=== PATIENT | female | born 1995 | race Caucasian/White ===

== ENCOUNTER → 2018-06-21 18:07 | Outpatient (CLI) | payer BC, SELFPAY ==
[2018-06-26 11:14] LABS: Neisseria gonorrhoeae, NAA Negative (Negative)
== END ==
PROVIDERS: Visit Provider Nurse Practitioner Obstetrics & Gynecology
DX: N89.8 Other specified noninflammatory disorders of vagina (principal)
CPT/HCPCS: 87491; 87591

== ENCOUNTER → 2019-08-22 17:14 | Outpatient (CLI) | payer BC, SELFPAY ==
[2019-08-25 12:22] LABS: Neisseria gonorrhoeae, NAA Negative (Negative)
== END ==
PROVIDERS: Visit Provider Nurse Practitioner Obstetrics & Gynecology
DX: R10.2 Pelvic and perineal pain (principal); R39.89 Other symptoms and signs involving the genitourinary system
CPT/HCPCS: 87491; 87591

== ENCOUNTER → 2019-08-31 13:45 | Outpatient (CLI) | payer BC, SELFPAY ==
--- NOTE | 2019-08-31 13:49 | US_ITS ---
PROCEDURE: US TRANSVAGINAL CLINICAL INDICATION: US T/V- Pelvic Pain COMPARISON: TVP US TRANSVAGINAL PREG from 11/11/2015 FINDINGS: UTERUS: 7.1 centimeters x 5.5 centimetersx 6.8 centimeters with a combined endometrial thickness of 13.1mm LEFT OVARY: 3.5 centimetersx5.4 centimetersx3.6 centimeters with a volume of 36.7ml. RIGHT OVARY: 3.2 centimetersx 2.5 centimetersx3.1 centimeters with a volume of 13.7 milliliters. Left ovary contains a 2.9 by 3.0 x 3 point 0 centimeter cyst likely functional. There is a small amount of free fluid IMPRESSION: Left ovarian cyst likely functional with small amount of free fluid in the pelvis. Endometrial thickening to 1.3 centimeters nonspecific. Dictated by: Dez Mercedes 08/31/2019 16:03 Electronically signed by Dez Mercedes in [facility] 08/31/2019 16:03
== END ==
PROVIDERS: PCP Nurse Practitioner Family; Visit Provider Nurse Practitioner Obstetrics & Gynecology
DX: R10.2 Pelvic and perineal pain (principal)
CPT/HCPCS: 76830

== ENCOUNTER 2021-08-15 15:18 | Emergency (ER) | payer BC, SELFPAY ==
[2021-08-15 15:20] VITALS: BP 146/89; PULSE 146; RESP 18; TEMP 36.9; O2SAT 100; BMI 32.3
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
[2021-08-15 16:19] LABS: Urine Pregnancy, HCG Qual. Negative (Negative)
[2021-08-15 17:00] VITALS: BP 156/78; PULSE 107; RESP 18; TEMP 36.9; O2SAT 100
== END 2021-08-15 17:00 | disposition home or self-care (01) ==
PROVIDERS: Emergency Provider Emergency Medicine
DX: S76.011A Strain of muscle, fascia and tendon of right hip, initial encounter (principal); V59.50XA Passenger in pick-up truck or van injured in collision with unspecified motor vehicles in traffic accident, initial encounter; Y92.488 Other paved roadways as the place of occurrence of the external cause; F17.210 Nicotine dependence, cigarettes, uncomplicated
CPT/HCPCS: 72100; 73502; 81025; 99282

== ENCOUNTER → 2021-09-17 13:27 | Outpatient (CLI) | payer BC, SELFPAY ==
--- NOTE | 2021-09-17 13:31 | US_ITS ---
FINAL REPORT CLINICAL HISTORY: .THYROID SWELLING-- FATIGY FINDINGS: THYROID ULTRASOUND Sonographic images of the thyroid was obtained. The right lobe of the thyroid measures4.4 x 1.6 x 1.6 cm. The left lobe of the thyroid measures 3.5 x 1.0 x 1.5 cm. The isthmus measures 3 mm. IMPRESSION: Unremarkable thyroid evaluation Reviewed, Interpreted and Dictated by Vishnu Samano III, MD Transcribed by Anna Kennedy Authenticated by Vishnu Samano III, MD on 09/17/2021 03:32:[address] [facility]
== END ==
PROVIDERS: PCP Nurse Practitioner Family; Visit Provider Nurse Practitioner Family
DX: E04.9 Nontoxic goiter, unspecified (principal)
CPT/HCPCS: 76536

== ENCOUNTER 2021-09-24 13:00 | Outpatient (RCR) | payer BC, SELFPAY | END 2021-10-21 09:06 | disposition home or self-care (01) | LOC: PT.CARL 13:00 | PROVIDERS: Visit Provider Nurse Practitioner Family | DX: M54.50 Low back pain, unspecified (principal) | CPT/HCPCS: 97010; 97014; 97110; 97140; 97163; G0283 ==

== ENCOUNTER → 2022-01-19 11:02 | Outpatient (CLI) | payer BC, SELFPAY | PROVIDERS: Visit Provider Nurse Practitioner Obstetrics & Gynecology | DX: N39.0 Urinary tract infection, site not specified (principal); Z01.419 Encounter for gynecological examination (general) (routine) without abnormal findings | CPT/HCPCS: 87086 ==

== ENCOUNTER 2022-03-25 16:00 | Outpatient (RCR) | payer BC, SELFPAY | END 2022-03-25 17:00 | disposition home or self-care (01) | LOC: PT 16:00 | PROVIDERS: Visit Provider Nurse Practitioner Family | DX: M25.551 Pain in right hip (principal); V89.2XXA Person injured in unspecified motor-vehicle accident, traffic, initial encounter | CPT/HCPCS: 97110; 97140; 97163 ==

== ENCOUNTER 2022-06-07 13:00 | Emergency (ER) | payer BC, SELFPAY ==
[2022-06-07 13:50] VITALS: BP 144/90; PULSE 64; RESP 20; TEMP 36.8; O2SAT 100; BMI 34.7
--- NOTE | 2022-06-07 14:06 | EXP.UTC ---
Discharge Plan Disposition Patient Disposition: Home, Self-Care Condition: Good Prescriptions Prescriptions: New amoxicillin [amoxicillin] 500 mg tablet 500 mg PO TID 10 Days Qty: 30 0RF benzonatate [benzonatate] 100 mg capsule 100 mg PO TIDP PRN (Reason: Cough) Qty: 30 0RF methylprednisolone 4 mg Tablets,Dose Pack 4 mg PO DIRECTED Qty: 21 0RF No Action buprenorphine-naloxone 8-2 mg tablet, sublingual SUBLINGUAL 7 Days Qty: 14 gabapentin 300 mg capsule PO 30 Days Qty: 60 nitrofurantoin monohyd/m-cryst [Macrobid] 100 mg capsule 100 mg PO BID 10 Days Qty: 20 0RF Rx Instructions: must administer with a meal/food polyethylene glycol 3350 [Miralax] 17 gram/dose powder 17 g PO BID Qty: 510 4RF fluconazole [Diflucan] 150 mg tablet 150 mg PO Q3D 0 Days Qty: 2 0RF Referrals Follow up/Referrals: Tigist Stephens [Primary Care Provider] - See instructions Activity Restrictions/Add. Instructions Additional Instructions/Restrictions: Drink plenty of fluids. Take tylenol or ibuprofen for pain or fever. Take the medications as directed. Follow up with your regular doctor. GO TO THE ER FOR ANY WORSENING SYMPTOMS Throw your tooth brush away and get a new one. Clinical Impressions Clinical Impression: Pharyngitis Stand Alone Forms Stand Alone Forms: Work/School Release Instructions Patient Instructions: Strep Throat, DI for Strep Throat Discharge ED Provider: Dani Chandra [facility] General Stated complaint: exposer to sickness Time Seen by Provider: 06/07/22 14:06 History of Present Illness Provider Complaint: She states that she has had a sore throat for the past 3 days. Related Data Home Medications Medication Instructions Recorded Confirmed buprenorphine 8 mg-naloxone 2 mg sublingual 7 days ##14 12/27/17 01/18/22 sublingual tablet gabapentin 300 mg capsule PO 30 days ##60 12/27/17 01/18/22 Previous Rx's Medication Instructions Recorded polyethylene glycol 3350 17 17 g PO BID #510 grams 01/12/22 gram/dose oral powder (Miralax) nitrofurantoin 100 mg PO BID 10 days #20 caps 01/18/22 monohydrate/macrocrystals 100 mg capsule (Macrobid) fluconazole 150 mg tablet 150 mg PO Q3D 2 doses #2 tabs 02/16/22 (Diflucan) amoxicillin 500 mg tablet 500 mg PO TID 10 days #30 tabs 06/07/22 benzonatate 100 mg capsule 100 mg PO TIDP PRN Cough #30 caps 06/07/22 methylprednisolone 4 mg tablets in 4 mg PO DIRECTED #21 tabs 06/07/22 a dose pack Allergies Allergy/AdvReac Type Severity Reaction Status Date / Time chlorpheniramine Allergy Unknown Verified 01/18/22 16:16 [From [facility] (PHENYLEPH-CHLORPHN)] dextromethorphan Allergy Unknown Verified 01/18/22 16:16 [From [facility] (PHENYLEPH-CHLORPHN)] erythromycin base Allergy Unknown Verified 01/18/22 16:16 [[facility] phenylephrine Allergy Unknown Verified 01/18/22 16:16 [From [facility] (PHENYLEPH-CHLORPHN)] [facility] 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 Anxiety Surgical History History of section History of tonsillectomy Social History Smoking Status: Current every day smoker alcohol intake: never substance use type: former substance user current occupational status: employed Travel in the last 8 weeks: None housing: house ROS Obtained: Yes All systems reviewed & no additional complaints except as documented Constitutional Constitutional: Reports chills and Reports fever(s) Eyes Eyes: Denies eye discharge ENT Ears, Nose, Mouth, and Throat: Reports as per HPI Cardiovascular Cardiovascular: Denies chest pain Respiratory Respiratory: Denies chest congestion and Reports cough Gastrointestinal Gastrointestingal: Reports nausea; 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
[2022-06-07 14:23] LABS: UTC Influenza A Antigen Negative (Negative); UTC Influenza B Antigen Negative (Negative)
[2022-06-07 14:23] LABS: UTC Strep Screen (Rapid) Negative (Negative)
[2022-06-07 14:43] VITALS: BP 144/90; PULSE 64; RESP 20; TEMP 36.8; O2SAT 100
== END 2022-06-07 14:46 | disposition home or self-care (01) ==
PROVIDERS: Emergency Provider Nurse Practitioner Family; PCP Nurse Practitioner Family
DX: J02.9 Acute pharyngitis, unspecified (principal); R50.9 Fever, unspecified; R11.0 Nausea; R05.9 Cough, unspecified; F17.200 Nicotine dependence, unspecified, uncomplicated; Z79.51 Long term (current) use of inhaled steroids; Z79.52 Long term (current) use of systemic steroids; Z79.899 Other long term (current) drug therapy; Z88.0 Allergy status to penicillin; Z88.1 Allergy status to other antibiotic agents; Z88.3 Allergy status to other anti-infective agents; Z88.8 Allergy status to other drugs, medicaments and biological substances
CPT/HCPCS: 87804; 87880; 99213; G0463

== ENCOUNTER 2022-07-14 18:52 | Emergency (ER) | payer BC, SELFPAY ==
[2022-07-14 18:53] VITALS: BP 125/62; PULSE 69; RESP 18; TEMP 36.7; O2SAT 100; BMI 34.7
[2022-07-14 20:42] LABS: Basophils # 0.1 K/mm3 (0-0.2); Basophils % 1.3 % (0.1-2.0); Eosinophils # 0.1 K/mm3 (0.0-0.4); Eosinophils % 1.2 % (0.1-12.0); Hematocrit 43.2 % (37.0-47.0); Hemoglobin 14.5 g/dL (12.2-16.2); Lymphocytes # 3.3 K/mm3 (0.7-4.5); Lymphocytes % 33.7 % (10-50); Mean Corpuscular HGB Conc 33.6 g/dL (31.8-35.4); Mean Corpuscular Hemoglobin 31.2 pg (27.0-31.2); Mean Platelet Volume 8.9 fl (7.4-10.4); Monocytes # 0.7 K/mm3 (0.1-1.0); Monocytes % 6.8 % (1.7-9.3); Neutrophils # 5.5 K/mm3 (1.8-7.8); Platelet Count 348 K/mm3 (142-424); Red Blood Count 4.65 M/mm3 (4.20-5.40); Red Cell Distribution Width 13.4 % (11.5-17.5); White Blood Count 9.7 K/mm3 (4.8-10.8)
[2022-07-14 20:46] LABS: Alanine Aminotransferase 29 U/L (12-78); Albumin Level 4.4 g/dl (3.5-5.0); Albumin/Globulin Ratio 1.4 (1.1-1.8); Alkaline Phosphatase 121 U/L (38-126); Anion Gap 10.7 mEq/L (5-15); Aspartate Amino Transferase 33 U/L (14-36); Blood Urea Nitrogen 14 mg/dl (7-17); Calcium 9.8 mg/dl (8.4-10.2); Carbon Dioxide 31 mmol/L (22.0-30.0); Chloride 101 mmol/L (98-107); Creatinine Clearance Estimated 146 mL/min (50-200); Estimated Glomerular Filt Rate 76 ml/min (>60); GFR (African American) 92 ML/MIN (>60); Globulin 3.1 g/dL (1.3-3.2); Glucose 78 mg/dl (74-100); Lactic Acid 0.8 mmol/L (0.7-2.1); Potassium 3.7 mmoL/L (3.5-5.1); Sodium 139 mmol/L (136-145); Total Protein,Serum 7.5 g/dl (6.3-8.2)
[2022-07-14 20:49] LABS: Bilirubin,Total < 0.1 mg/dl (0.2-1.3)
--- NOTE | 2022-07-14 21:07 | HMH.EDGENADL ---
Discharge Plan Disposition Patient Disposition: Home, Self-Care Chief Complaint: PAIN Prescriptions Prescriptions: No Action buprenorphine-naloxone 8-2 mg tablet, sublingual 1 tab SUBLINGUAL DAILY 7 Days Qty: 14 gabapentin 300 mg capsule PO 30 Days Qty: 60 Referrals Follow up/Referrals: Tigist Stephens [Primary Care Provider] - See instructions Clinical Impressions Clinical Impression: Erysipelas of left lower extremity, DVT (deep venous thrombosis) Instructions Patient Instructions: DI for Deep Vein Thrombosis Discharge ED Provider: Dick Roy General Adult HPI General Chief complaint: PAIN Stated complaint: pOSSIBLE BLOOD CLOT L LEG Time Seen by Provider: 07/14/22 20:20 Mode of Arrival: Ambulatory Source of Information: Patient and Relative Limitations: No Limitations Description of Symptoms (Recalled from ER Triage Doc. by RN): pt states she woke up 3 days ago with some thing that felt like a bruise on her left calf yesterday she states she could barley walk and today there is no pain unless you touch it and that it feels like its pulliong on the inside pt stated that the dr told her it could be a blood clot or infection to come get seen History of Present Illness HPI narrative: 2 day hx of pain to lt post calf w/o fever/rash or trauma - worse with wt bearing and foot extension - no bcp and positive tob but no hx of dvt - Onset (ago): day(s) Location: lower extremity Severity: moderate Consistency: constant Associated symptoms: denies other symptoms Related Data Home Medications Medication Instructions Recorded Confirmed buprenorphine 8 mg-naloxone 2 mg 1 tab sublingual DAILY Supplement 12/27/17 01/18/22 sublingual tablet 7 days ##14 gabapentin 300 mg capsule PO 30 days ##60 12/27/17 01/18/22 Allergies Allergy/AdvReac Type Severity Reaction Status Date / Time chlorpheniramine Allergy Unknown Verified 01/18/22 16:16 [From [facility] (PHENYLEPH-CHLORPHN)] dextromethorphan Allergy Unknown Verified 01/18/22 16:16 [From [facility] (PHENYLEPH-CHLORPHN)] erythromycin base Allergy Unknown Verified 01/18/22 16:16 [[facility] phenylephrine Allergy Unknown Verified 01/18/22 16:16 [From [facility] (PHENYLEPH-CHLORPHN)] [facility] Disclaimer: The information contained in this section may have been updated after the patient was seen, as this information can be updated by other users. 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 Anxiety Surgical History History of section History of tonsillectomy Social History Smoking Status: Current every day smoker alcohol intake: never substance use type: former substance user current occupational status: employed Travel in the last 8 weeks: None housing: house ROS Obtained: Yes All systems reviewed & no additional complaints except as documented Physical Exam General General appearance: alert Head Head exam: normocephalic Eye Eye exam: Present PERRL and EOMI ENT ENT exam: Present mucous membranes moist Neck Neck exam: Present trachea midline Respiratory Respiratory exam: Absent respiratory distress Cardiovascular Cardiovascular exam: Present regular rate Abdominal Exam Abdominal exam: Present soft Expanded Lower Extremity Exam Left: Lower leg exam: Present full ROM, tenderness, swelling and Homans' sign; Absent palpable cord Neurological Exam Neurological exam: Present alert, oriented X3 and CN II-XII intact Psychiatric Psychiatric exam: Present normal affect Skin Skin exam: Present other (reddness and tenderness lt post calf with no open area ) Medical Decision Making Medical Records Medical records reviewed: Yes I reviewed the patient's medical records. Az Inquiry Pt receiving controlled substance: No Vital Signs: 07/14
--- NOTE | 2022-07-14 21:40 | PC.NURSE ---
called lab for blood draw
[2022-07-14 22:06] LABS: HCG Qualitative, Serum Negative (Negative)
[2022-07-14 22:12] VITALS: BP 121/62; PULSE 72; RESP 18; TEMP 36.6; O2SAT 99
[2022-07-14 23:23] LABS: INR 0.89 (0.9-1.1); Prothrombin Time 9.7 seconds (10.1-12.5)
[2022-07-16 12:03] LABS: Homocyst(e)ine 33.4 umol/L (0.0-14.5)
[2022-07-17 22:11] LABS: Anti-Thrombin III Antigen 73 % (72-124); Antithrombin Activity 105 % (75-135); Factor VIII Activity 219 % (56-140); Protein C Functional 143 % (73-180); Protein S, Free 111 % (61-136); Protein S, Total 80 % (60-150); Protein S-Functional 72 % (63-140)
[2022-07-22 05:24] LABS: Protein C Antigen 107 % (60-150)
== END 2022-07-14 22:20 | disposition home or self-care (01) ==
PROVIDERS: Emergency Provider Emergency Medicine; PCP Nurse Practitioner Family
DX: I82.402 Acute embolism and thrombosis of unspecified deep veins of left lower extremity; A46 Erysipelas; Z16.39 Resistance to other specified antimicrobial drug; Z16.11 Resistance to penicillins
CPT/HCPCS: 80053; 81241; 83090; 83605; 84703; 85025; 85240; 85300; 85301; 85302; 85305; 85306; 85610; 86148; 87040; 87077; 87186; 96365; 96372; 96375; 99284; J0696

== ENCOUNTER → 2022-07-15 09:20 | Outpatient (CLI) | payer BC, SELFPAY ==
--- NOTE | 2022-07-15 | CA_ITS ---
FINAL REPORT TECHNIQUE: Color Doppler, duplex Doppler and compression sonography of the left lower extremity deep venous systems was performed. 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 The veins are patent and compressible. There is a superficial venous thrombus in the mid calf to ankle. IMPRESSION: No evidence of deep venous thrombosis left lower extremity. Superficial venous thrombus in the mid calf to ankle. Reviewed, Interpreted and Dictated by Vishnu Samano III, MD Transcribed by Anna Kennedy Authenticated and [facility]
== END ==
PROVIDERS: PCP Nurse Practitioner Family; Visit Provider Emergency Medicine
DX: M79.662 Pain in left lower leg (principal); R29.898 Other symptoms and signs involving the musculoskeletal system
CPT/HCPCS: 93971

== ENCOUNTER 2023-09-22 16:00 | Outpatient (CLI) | payer OTHER, SELFPAY ==
--- NOTE | 2023-09-22 16:01 | US_ITS ---
PROCEDURE INFORMATION: Exam: US Left Breast, Complete Exam date and time: 09/22/2023 4:08 PM Age: 28 years old Clinical indication: Breast pain; Left TECHNIQUE: Imaging protocol: Complete ultrasound of all four quadrants of the left breast and the retroareolar regions, including ultrasound of the axilla when performed. COMPARISON: No relevant prior studies available. FINDINGS: Breast: Sonographic images of the left breast including the retroareolar region, all 4 quadrants and the axilla do not demonstrate any solid masses. Minimal subcentimeter cystic change in the left lower outer quadrant. No architectural distortion or acoustical shadowing. No skin thickening or axillary adenopathy. IMPRESSION: No sonographic evidence of malignancy. Annual mammographic screening is recommended unless otherwise clinically indicated. ASSESSMENT: BI-RADS Category 2: Benign
== END 2023-09-22 23:59 ==
LOC: RAD 16:01
PROVIDERS: PCP Nurse Practitioner Family; Visit Provider Nurse Practitioner Obstetrics & Gynecology
DX: N64.4 Mastodynia (principal)
CPT/HCPCS: 76641

== ENCOUNTER 2023-10-16 16:35 | Emergency (ER) | payer OTHER, SELFPAY ==
[2023-10-16 17:05] VITALS: BP 116/69; PULSE 56; RESP 18; TEMP 36.7; O2SAT 98; BMI 35.6
--- NOTE | 2023-10-16 17:19 | EXP.UTC ---
Discharge Plan Disposition Patient Disposition: Home, Self-Care Condition: Good Prescriptions Prescriptions: New amoxicillin 500 mg tablet 500 mg PO TID 10 Days Qty: 30 0RF methylprednisolone 4 mg Tablets,Dose Pack 4 mg PO DIRECTED 6 Days Qty: 21 0RF Rx Instructions: Take 1 pack as directed for 6 days No Action buprenorphine-naloxone 8-2 mg tablet, sublingual 1 tab SUBLINGUAL DAILY 7 Days Qty: 14 gabapentin 100 mg capsule 100 mg PO TID Patient Comments: TAKE THREE CAPSULES 1 TIME EACH DAY Mirena 21 mcg/24 hours (8 yrs) 52 mg intrauterine device 1 device intrauterine ONCE Referrals Follow up/Referrals: Tigist Stephens [Primary Care Provider] - See instructions Activity Restrictions/Add. Instructions Additional Instructions/Restrictions: Drink plenty of fluids. Take tylenol or ibuprofen for pain or fever. Take the medications as directed. Follow up with your regular doctor. GO TO THE ER FOR ANY WORSENING SYMPTOMS Clinical Impressions Clinical Impression: Influenza B, Pharyngitis Stand Alone Forms Stand Alone Forms: Work/School Release Instructions Patient Instructions: Influenza, DI for Pharyngitis/Tonsillopharyngitis -- Adult, DI for Influenza -- Adult Discharge ED Provider: Dani Chandra [facility] HPI General Stated complaint: exposed to flu-sore throat, fever, cough Time Seen by Provider: 10/16/23 17:19 History of Present Illness Provider Complaint: She states that for the past 5 days she has had body aches, chills, malaise, cough, and fever. Related Data Home Medications Medication Instructions Recorded Confirmed buprenorphine 8 mg-naloxone 2 mg 1 tab sublingual DAILY Supplement 12/27/17 10/16/23 sublingual tablet 7 days ##14 gabapentin 100 mg capsule 100 mg PO TID 09/15/23 10/16/23 levonorgestrel 21 mcg/24 hours (8 1 device intrauterine ONCE 09/27/23 10/16/23 yrs) 52 mg intrauterine device (Mirena) Previous Rx's Medication Instructions Recorded amoxicillin 500 mg tablet 500 mg PO TID 10 days #30 tabs 10/16/23 methylprednisolone 4 mg tablets in 4 mg PO DIRECTED 6 days #21 tabs 10/16/23 a dose pack Allergies Allergy/AdvReac Type Severity Reaction Status Date / Time chlorpheniramine Allergy Unknown Verified 10/16/23 17:38 [From [facility] (PHENYLEPH-CHLORPHN)] dextromethorphan Allergy Unknown Verified 10/16/23 17:38 [From [facility] (PHENYLEPH-CHLORPHN)] erythromycin base Allergy Unknown Verified 10/16/23 17:38 [[facility] phenylephrine Allergy Unknown Verified 10/16/23 17:38 [From [facility] (PHENYLEPH-CHLORPHN)] [facility] Disclaimer: The information contained in this section may have been updated after the patient was seen, as this information can be updated by other users. 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 Anxiety Surgical History History of section History of tonsillectomy Social History Smoking Status: Current every day smoker alcohol intake: never substance use type: former substance user current occupational status: employed Travel in the last 8 weeks: None housing: house ROS Obtained: Yes All systems reviewed & no additional complaints except as documented Constitutional Constitutional: Reports chills and Reports fever(s) Eyes Eyes: Denies eye discharge ENT Ears, Nose, Mouth, and Throat: Reports as per HPI Cardiovascular Cardiovascular: Denies chest pain Respiratory Respiratory: Denies chest congestion and Reports cough Gastrointestinal Gastrointestingal: Reports nausea; Denies abdominal pain, constipation, cramping, diarrhea or vomiting Musculoskeletal Musculoskeletal: Denies arthralgias Integumentary/Breasts Skin/Breast: Denies rash Neurologic Neurologic: Denies paresthesias Physical Exam General General appearance: alert and in no apparent distress Head Head exam: atraumatic, normocephalic and normal inspection Eye Eye exam: Present normal appearance, PERRL and EOMI ENT ENT exam: Present mucous membranes moist and normal external ear exam Expanded ENT Exam TM/Canal exam: Bilateral TM: erythema and bulging Nose exam: Absent sinus tenderness Mouth exam: Present normal external inspection; Absent drooling Teeth exam: Present normal inspection Throat exam: Present tonsillar erythema, tonsillomegaly and tonsillar exudate Neck Neck exam: Present normal inspection, full ROM and trachea midline; Absent tenderness, meningismus or lymphadenopathy Chest Chest inspection: Present normal inspection and symmetric chest wall rise; Absent tenderness Respiratory Respiratory exam: Present normal lung sounds bilaterally; Absent respiratory distress, wheezes, stridor or accessory muscle use Cardiovascular Cardiovascular exam: Present regular rate and normal rhythm; Absent systolic murmur or diastolic murmur Abdominal Exam Abdominal exam: Present soft and normal bowel sounds; Absent distention, tenderness, guarding, rebound or rigidity Extremities Exam Extremities exam: Present normal inspection and normal capillary refill; Absent calf tenderness Back Exam Back exam: Present normal inspection and full ROM; Absent tenderness, CVA tenderness (R) or CVA tenderness (L) Neurological Exam Neurological exam: Present alert, oriented X3 and CN II-XII intact Psychiatric Psychiatric exam: Present normal affect and normal mood Skin Skin exam: Present warm, dry, intact and normal color Medical Decision Making Medical Records Medical records reviewed: No I reviewed the patient's medical records. Az Inquiry Pt receiving controlled substance: No Lab Data Lab results reviewed: Yes I reviewed the patient's lab results.
[2023-10-16 17:47] LABS: UTC Influenza A Antigen Positive (Negative); UTC Influenza B Antigen Negative (Negative); UTC Strep Screen (Rapid) Negative (Negative)
[2023-10-16 18:26] VITALS: BP 116/69; PULSE 56; RESP 18; TEMP 36.7; O2SAT 98
== END 2023-10-16 18:26 | disposition home or self-care (01) ==
PROVIDERS: Emergency Provider Nurse Practitioner Family; PCP Nurse Practitioner Family
DX: J10.1 Influenza due to other identified influenza virus with other respiratory manifestations (principal); R07.0 Pain in throat; R05.9 Cough, unspecified; R50.9 Fever, unspecified; R53.81 Other malaise; F41.9 Anxiety disorder, unspecified; F17.200 Nicotine dependence, unspecified, uncomplicated
CPT/HCPCS: 87804; 87880; 99212; 99214; G0463

== ENCOUNTER 2024-03-24 16:58 | Emergency (ER) | payer OTHER, SELFPAY ==
[2024-03-24 17:30] VITALS: BP 127/69; PULSE 82; RESP 20; TEMP 36.8; O2SAT 97; BMI 15.9
--- NOTE | 2024-03-24 17:46 | EXP.UTC ---
Discharge Plan Disposition Patient Disposition: Home, Self-Care Condition: Good Prescriptions Prescriptions: New amoxicillin 500 mg tablet 500 mg PO BID 10 Days Qty: 20 0RF No Action buprenorphine-naloxone 8-2 mg tablet, sublingual 1 tab SUBLINGUAL DAILY 7 Days Qty: 14 gabapentin 100 mg capsule 100 mg PO TID Patient Comments: TAKE THREE CAPSULES 1 TIME EACH DAY Mirena 21 mcg/24 hours (8 yrs) 52 mg intrauterine device 1 device intrauterine ONCE amoxicillin 500 mg tablet 500 mg PO TID 10 Days Qty: 30 0RF methylprednisolone 4 mg Tablets,Dose Pack 4 mg PO DIRECTED 6 Days Qty: 21 0RF Rx Instructions: Take 1 pack as directed for 6 days Referrals Follow up/Referrals: Tigist Stephens [Primary Care Provider] - See instructions Activity Restrictions/Add. Instructions Additional Instructions/Restrictions: Start antibiotics today be sure to take it as ordered with the full length of time although you should start feeling better in 24-48 hours. Change toothbrush and toothpaste 24-48 hours after starting antibiotics Tylenol or Motrin as needed for fever or pain Encourage fluids, water, Gatorade, Powerade, try cold fluids, popsicles, ice cream will make it feel better You are contagious for 24 hours. Avoid kissing anyone, no eating or drinking after anyone. You are contagious. Follow-up the ER for new or worsening symptoms or no noticeable improvement over the next 24-48 hours. Follow-up with PCP this week. Clinical Impressions Clinical Impression: Strep sore throat Instructions Patient Instructions: DI for Strep Throat Print Language Print Language: Sami Discharge ED Provider: Saji ([facility])Danya [facility] [place] HPI General Stated complaint: Sore throat,Cough,BONILLA,body aches Mode of Arrival: Ambulatory Source of Information: Patient Limitations: No Limitations Time Seen by Provider: 03/24/24 17:47 Description of Symptoms (Recalled from Triage Doc. by RN): PATIENT C/O SORE THROAT, HEADACHE, BODY ACHES, AND COUGH HEENT Symptoms (Recalled from RN notes): Yes Resp Symptoms (Recalled from RN notes): Yes Skin Symptoms (Recalled from RN notes): No MS Symptoms (Recalled from RN notes): No Functional Status (Recalled from RN notes): WNL History of Present Illness Provider Complaint: 29 yr old female presents for c/o Sore throat, Cough, BONILLA, body aches. pt states feels like her normal strep Related Data Home Medications ?Medication ?Instructions ?Recorded ?Confirmed buprenorphine 8 mg-naloxone 2 mg 1 tab sublingual DAILY Supplement 12/27/17 10/19/23 sublingual tablet 7 days ##14 gabapentin 100 mg capsule 100 mg PO TID 09/15/23 10/19/23 levonorgestrel 21 mcg/24 hr (up to 1 device intrauterine ONCE 09/27/23 10/19/23 8 years) 52 mg intrauterine device (Mirena) Previous Rx's ?Medication ?Instructions ?Recorded amoxicillin 500 mg tablet 500 mg PO TID 10 days #30 tabs 10/16/23 methylprednisolone 4 mg tablets in 4 mg PO DIRECTED 6 days #21 tabs 10/16/23 a dose pack amoxicillin 500 mg tablet 500 mg PO BID 10 days #20 tabs 03/24/24 Allergies Allergy/AdvReac Type Severity Reaction Status Date / Time chlorpheniramine Allergy Unknown Verified 10/19/23 10:07 [From [facility] DM (PHENYLEPH-CHLORPHN)] dextromethorphan Allergy Unknown Verified 10/19/23 10:07 [From [facility] (PHENYLEPH-CHLORPHN)] erythromycin base Allergy Unknown Verified 10/19/23 10:07 [From [facility] phenylephrine Allergy Unknown Verified 10/19/23 10:07 [From [facility] DM (PHENYLEPH-CHLORPHN)] Worker's Comp Is this a Worker's Comp case?: No [facility] Disclaimer: The information contained in this section may have been updated after the patient was seen, as this information can be updated by other users. 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) Smoking Status: Current every day smoker alcohol intake: never substance use type: former substance user current occupational status: employed Travel in the last 8 weeks: None housing: house ROS Obtained: Yes All systems reviewed & no additional complaints except as documented Constitutional Constitutional: Reports system reviewed and no additional complaints, except as documented, Reports as per HPI, Reports body ache, Reports chills and Reports headache(s) Eyes Eyes: Reports system reviewed and no additional complaints, except as documented ENT Ears, Nose, Mouth, and Throat: Reports system reviewed and no additional complaints, except as documented, Reports as per HPI, Reports headache(s) and Reports sore throat Cardiovascular Cardiovascular: Reports system reviewed and no additional complaints, except as documented Respiratory Respiratory: Reports system reviewed and no additional complaints, except as documented and Reports cough Gastrointestinal Gastrointestingal: Reports system reviewed and no additional complaints, except as documented Musculoskeletal Musculoskeletal: Reports system reviewed and no additional complaints, except as documented Integumentary/Breasts Skin/Breast: Reports system reviewed and no additional complaints, except as documented Neurologic Neurologic: Reports system reviewed and no additional complaints, except as documented and Reports headache(s) Endocrine Endocrine: Reports system reviewed and no additional complaints, except as documented Hematologic/Lymphatic Henatologic/Lymphatic: Reports system reviewed and no additional complaints, except as documented Allergic/Immunologic Allergic/Immunologic: Reports system reviewed and no additional complaints, except as documented Physical Exam General General appearance: alert and in no apparent distress Head Head exam: atraumatic Eye Eye exam: Present normal appearance and PERRL ENT ENT exam: Present mucous membranes moist and TM's normal bilaterally Expanded ENT Exam Comment: pharynx red and exudate present Respiratory Respiratory exam: Present normal lung sounds bilaterally Cardiovascular Cardiovascular exam: Present regular rate and normal rhythm Neurological Exam Neurological exam: Present alert and oriented X3 Skin Skin exam: Present warm and intact Medical Decision Making Medical Records Medical records reviewed: Yes I reviewed the patient's medical records. Az Inquiry Pt receiving controlled substance: No Az was queried for this patient: No Vital Signs: 03/24/24 17:30 Temperature 98.3 F Temperature Source Oral Pulse Rate [Left Brachial] 82 Respiratory Rate 20 Blood Pressure [Left Arm] 127/69 Blood Pressure Mean [Left Arm] 88 Blood Pressure Source [Left Arm] Automatic Cuff Blood Pressure Position [Left Arm] Sitting 02 Sat by Pulse Oximetry 97 Oxygen Delivery Method Room Air
[2024-03-24 18:12] LABS: UTC Strep Screen (Rapid) Negative (Negative)
[2024-03-24 18:17] VITALS: BP 127/69; PULSE 82; RESP 20; TEMP 36.8; O2SAT 97
== END 2024-03-24 18:22 | disposition home or self-care (01) ==
PROVIDERS: Emergency Provider Nurse Practitioner Family; PCP Nurse Practitioner Family
DX: J02.0 Streptococcal pharyngitis (principal); R05.9 Cough, unspecified; R51.9 Headache, unspecified; R07.0 Pain in throat
CPT/HCPCS: 87880; 99212; 99214; G0463

== ENCOUNTER 2024-07-13 16:40 | Emergency (ER) | payer OTHER, SELFPAY ==
[2024-07-13 17:41] VITALS: BP 110/72; PULSE 78; RESP 20; TEMP 37.1; O2SAT 100; BMI 32.5
[2024-07-13 18:00] LABS: UTC Strep Screen (Rapid) Negative (Negative)
--- NOTE | 2024-07-13 18:00 | EXP.UTC ---
Discharge Plan Disposition Patient Disposition: Home, Self-Care Condition: Good Prescriptions Prescriptions: New prednisone 10 mg tablet 10 mg PO BID 3 Days Qty: 6 0RF amoxicillin 500 mg tablet 500 mg PO TID 10 Days Qty: 30 0RF No Action buprenorphine-naloxone 8-2 mg tablet, sublingual 1 tab SUBLINGUAL DAILY 7 Days Qty: 14 gabapentin 100 mg capsule 100 mg PO TID Patient Comments: TAKE THREE CAPSULES 1 TIME EACH DAY Mirena 21 mcg/24 hours (8 yrs) 52 mg intrauterine device 1 device intrauterine ONCE Referrals Follow up/Referrals: Tigist Stephens [Primary Care Provider] - See instructions Activity Restrictions/Add. Instructions Additional Instructions/Restrictions: Drink plenty of fluids. Take tylenol or ibuprofen for pain or fever. Take the medications as directed. Follow up with your regular doctor. GO TO THE ER FOR ANY WORSENING SYMPTOMS Clinical Impressions Clinical Impression: Pharyngitis Instructions Patient Instructions: DI for Pharyngitis/Tonsillopharyngitis -- Child Print Language Print Language: Kazakh Discharge ED Provider: Dani Chandra [facility] General Stated complaint: st cough drainage Mode of Arrival: Ambulatory Source of Information: Patient Time Seen by Provider: 07/13/24 17:56 Description of Symptoms (Recalled from Triage Doc. by RN): SORE THROAT, COUGHING, MUCUS HEENT Symptoms (Recalled from RN notes): Yes Resp Symptoms (Recalled from RN notes): Yes Skin Symptoms (Recalled from RN notes): No MS Symptoms (Recalled from RN notes): No Functional Status (Recalled from RN notes): WNL Related Data Home Medications ?Medication ?Instructions ?Recorded ?Confirmed buprenorphine 8 mg-naloxone 2 mg 1 tab sublingual DAILY Supplement 12/27/17 07/13/24 sublingual tablet 7 days ##14 gabapentin 100 mg capsule 100 mg PO TID 09/15/23 07/13/24 levonorgestrel (Mirena) 1 device intrauterine ONCE 09/27/23 07/13/24 Previous Rx's ?Medication ?Instructions ?Recorded amoxicillin 500 mg tablet 500 mg PO TID 10 days #30 tabs 07/13/24 prednisone 10 mg tablet 10 mg PO BID 3 days #6 tabs 07/13/24 Allergies Allergy/AdvReac Type Severity Reaction Status Date / Time chlorpheniramine (From Allergy Unknown Verified 10/19/23 10:07 [facility] DM (PHENYLEPH-CHLORPHN)) dextromethorphan (From Allergy Unknown Verified 10/19/23 10:07 [facility] DM (PHENYLEPH-CHLORPHN)) erythromycin base (From Allergy Unknown Verified 10/19/23 10:07 [facility] phenylephrine (From [facility] Allergy Unknown Verified 10/19/23 10:07 DM (PHENYLEPH-CHLORPHN)) Worker's Comp Is this a Worker's Comp case?: No [facility] Disclaimer: The information contained in this section may have been updated after the patient was seen, as this information can be updated by other users. 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 , IN [employer]) IUD check up Anxiety Surgical History , IN [employer]) History of tonsillectomy History of section Family History , IN [employer]) Substance abuse Diabetes Alcoholism Heart attack FHx: mental illness Cancer Hypertension Thyroid disorder Asthma Social History , IN [employer]) Smoking Status: Current every day smoker alcohol intake: never substance use type: former substance user current occupational status: employed Travel in the last 8 weeks: None housing: house ROS Obtained: Yes All systems reviewed & no additional complaints except as documented Constitutional Constitutional: Reports chills and Reports fever(s) Eyes Eyes: Denies eye discharge ENT Ears, Nose, Mouth, and Throat: Reports as per HPI Cardiovascular Cardiovascular: Denies chest pain Respiratory Respiratory: Denies chest congestion and Reports cough Gastrointestinal Gastrointestingal: Reports nausea; Denies abdominal pain, constipation, cramping, diarrhea or vomiting Musculoskeletal Musculoskeletal: Denies arthralgias Integumentary/Breasts Skin/Breast: Denies rash Neurologic Neurologic: Denies paresthesias Physical Exam General General appearance: alert and in no apparent distress Head Head exam: atraumatic, normocephalic and normal inspection Eye Eye exam: Present normal appearance, PERRL and EOMI ENT ENT exam: Present mucous membranes moist and normal external ear exam Expanded ENT Exam TM/Canal exam: Bilateral TM: erythema and bulging Nose exam: Absent sinus tenderness Mouth exam: Present normal external inspection; Absent drooling Teeth exam: Present normal inspection Throat exam: Present tonsillar erythema, tonsillomegaly and tonsillar exudate Neck Neck exam: Present normal inspection, full ROM and trachea midline; Absent tenderness, meningismus or lymphadenopathy Chest Chest inspection: Present normal inspection and symmetric chest wall rise; Absent tenderness Respiratory Respiratory exam: Present normal lung sounds bilaterally; Absent respiratory distress, wheezes, stridor or accessory muscle use Cardiovascular Cardiovascular exam: Present regular rate and normal rhythm; Absent systolic murmur or diastolic murmur Abdominal Exam Abdominal exam: Present soft and normal bowel sounds; Absent distention, tenderness, guarding, rebound or rigidity Extremities Exam Extremities exam: Present normal inspection and normal capillary refill; Absent calf tenderness Back Exam Back exam: Present normal inspection and full ROM; Absent tenderness, CVA tenderness (R) or CVA tenderness (L) Neurological Exam Neurological exam: Present alert, oriented X3 and CN II-XII intact Psychiatric Psychiatric exam: Present normal affect and normal mood Skin Skin exam: Present warm, dry, intact and normal color Medical Decision Making Medical Records Medical records reviewed: No I reviewed the patient's medical records. Screening: Per USPSTF and CDC recommendations, given the prevalence of disease in our region, it is our hospital?s policy to screen for HIV and viral Hepatitis for all patients aged 18 and over and those with ongoing risk factors. Az Inquiry Pt receiving controlled substance: No Vital Signs: 07/13/24 17:41 Temperature 98.8 F Temperature Source Oral Pulse Rate [Left Radial] 78 Respiratory Rate 20 Blood Pressure [Left Arm] 110/72 Blood Pressure Mean [Left Arm] 84 02 Sat by Pulse Oximetry 100 Lab Data Lab results reviewed: Yes I reviewed the patient's lab results. Lab Results 07/13/24 17:40: Strep Scn Rapid Clinic Negative Orders (Tests/Meds): ORDERS Category Date Time Status Strep Screen Confirmation Stat Micro 07/13/24 17:40 Received
[2024-07-13 18:35] VITALS: BP 110/72; PULSE 78; RESP 20; TEMP 37.1
== END 2024-07-13 18:40 | disposition home or self-care (01) ==
PROVIDERS: Emergency Provider Nurse Practitioner Family; PCP Nurse Practitioner Family
DX: J02.9 Acute pharyngitis, unspecified (principal)
CPT/HCPCS: 87880; 99213; G0381